=== PATIENT | female | born 1955 | race Caucasian/White ===

== ENCOUNTER → 2016-10-22 | Outpatient (CLI) | payer BC ==
[~2016-10-22] MED LIST: AMLODIPINE BESYL5 MG PO; GLIPIZIDE ER2.5 MG PO; JANUMET XR 50-1 EAC1 PO; LANTUS100 UNIT/1 SQ; LISINOPRIL40 MG PO; METFORMIN HYDROC1 GM MC; OMEPRAZOLE40 M1 PO; PRAVASTATIN SOD40 MG PO
[2016-10-22 12:05] LABS: POINT-OF-CARE METER ID UU13113694
== END | disposition home or self-care (01) ==
LOC: AMB 11:30
PROVIDERS: Surgery
PROC: 0DJ08ZZ Inspection of Upper Intestinal Tract, Via Natural or Artificial Opening Endoscopic (ICD-10-PCS; principal; 2016-10-22)
DX: K21.9 Gastro-esophageal reflux disease without esophagitis (principal); I10 Essential (primary) hypertension; E11.9 Type 2 diabetes mellitus without complications; E66.01 Morbid (severe) obesity due to excess calories; Z68.41 Body mass index [BMI] 40.0-44.9, adult; Z79.4 Long term (current) use of insulin
CPT/HCPCS: 82948; B4087; J3010

== ENCOUNTER 2016-11-13 05:55 | Inpatient (IN) | payer BC ==
[~2016-11-13] VITALS: Ht 149.9 cm; Wt 97.5 kg
[~2016-11-13 05:55] MED LIST changes: +CENTRUM MULTIG80 MCG PO; +LANTUS 3 M100 UNITS1 SC; +NON-ASPIRIN PA500 M1 PO; +TOLTERODINE TART4 MG PO; +VITAMIN B-122000 MCG PO
[2016-11-13 07:59] LABS: POINT-OF-CARE METER ID UU14174212
[2016-11-14] MEDS ORDERED: MUCINEX FAST-M1 EAC2 PO (14:47)
== END 2016-11-13 07:54 | disposition home or self-care (01) | DRG 641 ==
LOC: 2SOUTH 05:55
PROVIDERS: Surgery
DX: E66.01 Morbid (severe) obesity due to excess calories (principal); Z53.09 Procedure and treatment not carried out because of other contraindication; J00 Acute nasopharyngitis [common cold]; E11.9 Type 2 diabetes mellitus without complications; I10 Essential (primary) hypertension; K21.9 Gastro-esophageal reflux disease without esophagitis; E78.5 Hyperlipidemia, unspecified; Z79.4 Long term (current) use of insulin; Z91.040 Latex allergy status; Z68.41 Body mass index [BMI] 40.0-44.9, adult; Z87.891 Personal history of nicotine dependence
CPT/HCPCS: 82948; 93005

== ENCOUNTER 2016-11-18 06:18 | Inpatient (IN) | payer BC ==
[~2016-11-18] VITALS: Ht 149.9 cm; Wt 97.5 kg
[~2016-11-18 06:18] MED LIST changes: +MUCINEX FAST-M1 EAC2 PO
[2016-11-18 07:46] VITALS: BP 130/64
[2016-11-18 10:49] LABS: POINT-OF-CARE METER ID UU14174212
[2016-11-18 11:33] LABS: POINT-OF-CARE METER ID UU13113675
[2016-11-18 15:10] VITALS: BP 129/53
[2016-11-18 20:00] VITALS: BP 139/61
[2016-11-19] VITALS (8 sets, daily range): BP systolic 127–172; BP diastolic 60–77
[2016-11-19 07:34] LABS: HEMATOCRIT 37.2 % (36.0-46.0); MCH 28.7 PG (29.0-34.0); MCHC 33.1 G/DL (30.0-36.0); MCV 86.7 FL (83-99); MEAN PLAT.VOLUME 9.7 uM^3 (9.5-12.4); PLATELET COUNT 247 K/uL (156-360); RBC DIS.WIDTH-CV 13.5 % (11.8-14.6); RBC DIS.WIDTH-SD 42.4 % (39-53); RED BLOOD COUNT 4.29 M/uL (3.80-5.20); WHITE BLOOD COUNT 11.7 K/uL (4.1-10.2)
[2016-11-19 07:58] LABS: ANION GAP 7 MEQ/L (2-14); CHLORIDE 101 MEQ/L (99-109); GFR ESTIMATE (CALCULATED) > 59 mL/min/; GLUCOSE 183 mg/dL (70-99); MAGNESIUM 1.6 mg/dl (1.3-2.7); POTASSIUM 4.7 MEQ/L (3.7-5.4); SAMPLE HEMOLYSIS CHECK 0; SAMPLE ICTERIC CHECK 0; SAMPLE LIPEMIA CHECK 0; SODIUM 136 MEQ/L (136-147); UREA NITROGEN (BUN) 14 mg/dL (9-23)
[2016-11-19] MEDS ORDERED: HYDROCODON-ACE1 EAC7 PO (08:27)
[2016-11-19 18:13] LABS: POINT-OF-CARE METER ID UU14162508
[2016-11-20 04:45] VITALS: BP 146/70
[2016-11-20 07:12] LABS: HEMATOCRIT 37.3 % (36.0-46.0); MCH 27.4 PG (29.0-34.0); MCHC 32.2 G/DL (30.0-36.0); MCV 85.2 FL (83-99); MEAN PLAT.VOLUME 9.4 uM^3 (9.5-12.4); PLATELET COUNT 249 K/uL (156-360); RBC DIS.WIDTH-CV 13.2 % (11.8-14.6); RBC DIS.WIDTH-SD 41.1 % (39-53); RED BLOOD COUNT 4.38 M/uL (3.80-5.20); WHITE BLOOD COUNT 11.5 K/uL (4.1-10.2)
[2016-11-20 07:37] LABS: ANION GAP 7 MEQ/L (2-14); CHLORIDE 101 MEQ/L (99-109); GFR ESTIMATE (CALCULATED) > 59 mL/min/; GLUCOSE 203 mg/dL (70-99); MAGNESIUM 1.7 mg/dl (1.3-2.7); POTASSIUM 4.8 MEQ/L (3.7-5.4); SAMPLE HEMOLYSIS CHECK 0; SAMPLE ICTERIC CHECK 0; SAMPLE LIPEMIA CHECK 0; SODIUM 134 MEQ/L (136-147); UREA NITROGEN (BUN) 12 mg/dL (9-23)
[2016-11-20 08:10] VITALS: BP 153/72
== END 2016-11-20 14:54 | disposition home or self-care (01) | DRG 621 ==
LOC: 2SOUTH 06:18 → 2EASTP 14:57
PROVIDERS: Surgery
PROC: 0DB64Z3 Excision of Stomach, Percutaneous Endoscopic Approach, Vertical (ICD-10-PCS; principal; 2016-11-18)
DX: E66.01 Morbid (severe) obesity due to excess calories (principal); Z68.41 Body mass index [BMI] 40.0-44.9, adult; E11.9 Type 2 diabetes mellitus without complications; I10 Essential (primary) hypertension; K21.9 Gastro-esophageal reflux disease without esophagitis; K27.9 Peptic ulcer, site unspecified, unspecified as acute or chronic, without hemorrhage or perforation; R32 Unspecified urinary incontinence
CPT/HCPCS: 80048; 82948; 83735; 84100; 85027; 94799; J0131; J0330; J0360; J0690; J1100; J1170; J1644; J1650; J1815; J2405; J2710; J2765; J3010; J3480; J7120; S0020